=== PATIENT | male | born 1990 | race Caucasian/White ===

== ENCOUNTER 2020-07-10 18:42 | Emergency (ER) | payer SELFPAY ==
[~2020-07-10] VITALS: Ht 185.4 cm; Wt 87.3 kg
[2020-07-10] MEDS ORDERED: DOXY100C2 PO (18:52)
[2020-07-10] MEDS ORDERED: NIZO2SH TP (18:52)
[2020-07-10] MEDS ORDERED: PANT40TA54 PO (18:52)
[2020-07-10] MEDS ORDERED: ACETAMINOPHEN 500 MG TABLET PO ONE (19:30)
[2020-07-10 20:43] VITALS: BP 111/63
== END 2020-07-10 20:30 | disposition home or self-care (01) ==
LOC: EMS 18:42
DX: R10.9 Unspecified abdominal pain (principal)
CPT/HCPCS: 99282; Z7502; Z7610

== ENCOUNTER 2021-07-27 10:12 | Inpatient (IN) | payer MEDICAID, OTHER ==
[~2021-07-27] VITALS: Ht 175.3 cm; Wt 86.0 kg
[~2021-07-27 10:12] MED LIST: DOXY100C5 PO; NIZO2SH TP; PANT40TA54 PO
[2021-07-27 12:00] LABS: BASOPHILS % (AUTO) 0.3 % (0.0-2.0); EOSINOPHILS % (AUTO) 0.3 % (1.0-6.0); HEMATOCRIT 44.7 % (41-53); HEMOGLOBIN 15.3 g/dL (13.5-17.5); LYMPHOCYTES # (AUTO) 1.3 K/uL (1.0-4.8); LYMPHOCYTES % (AUTO) 13.2 % (22.0-44.0); MEAN CORPUSCULAR HEMOGLOBIN 30.3 pg (26.0-34.0); MEAN CORPUSCULAR HGB CONC 34.3 G/dL (31.0-37.0); MEAN CORPUSCULAR VOLUME 88 fL (80-100); MONOCYTES # (AUTO) 0.5 K/uL (0.1-1.0); MONOCYTES % (AUTO) 4.7 % (2.0-9.0); NEUTROPHILS % (AUTO) 81.5 % (40.0-70.0); PLATELET COUNT (AUTO) 179 K/uL (150-450); RED BLOOD CELL COUNT(AUTO) 5.06 MIL/uL (4.50-5.90); RED CELL DISTRIBUTION WIDTH 14.5 % (11.5-14.5)
[2021-07-27 12:14] LABS: ANION GAP 5 mmol/L (8-16); CALCIUM, TOTAL 8.9 mg/dL (8.8-10.5); CARBON DIOXIDE 30 mmol/L (22-29); CHLORIDE 106 mmol/L (98-107); CREATININE 0.87 mg/dL (0.60-1.30); GLOMERULAR FILTR. RATE CALC > 60 mL/min (>60); GLUCOSE,RANDOM 100 mg/dL (70-110); POTASSIUM 4.3 mmol/L (3.5-5.1); SODIUM SERUM 141 mmol/L (136-145); UREA NITROGEN, BLOOD 9 mg/dL (7-18)
[2021-07-27 12:17] LABS: AMPHET/METH SCREEN,URINE NEGATIVE (NEGATIVE); BARBITURATE SCREEN, URINE NEGATIVE (NEGATIVE); BENZODIAZEPINES SCREEN,URINE NEGATIVE (NEGATIVE); CANNABINOID SCREEN,URINE NEGATIVE (NEGATIVE); COCAINE SCREEN,URINE NEGATIVE (NEGATIVE); METHADONE SCREEN, URINE NEGATIVE (NEGATIVE); OPIATE SCREEN,URINE NEGATIVE (NEGATIVE); PHENCYCLIDINE SCREEN,URINE NEGATIVE (NEGATIVE)
[2021-07-27 12:18] LABS: ALANINE AMINOTRANSFERASE 47 U/L (12-78); ALBUMIN 4.1 g/dL (3.4-5.0); ALKALINE PHOSPHATASE 75 U/L (46-116); ASPARTATE AMINOTRANSFERASE 21 U/L (15-37); BILIRUBIN,TOTAL 0.2 mg/dL (0.1-1.0); TOTAL PROTEIN, SERUM 7.6 g/dL (6.4-8.2)
[2021-07-27] MEDS ORDERED: HALOPERIDOL LACTATE 5 MG/ML VIAL IM ONE (12:45)
[2021-07-27] MEDS ORDERED: DiphenhydrAMINE HCL 50 MG/ML VIAL IM ONE (12:45)
[2021-07-27] MEDS ORDERED: LORazepam 2 MG/ML VIAL IM ONE (12:45)
[2021-07-27 13:39] LABS: COVID AG,FIA SOURCE NASOPHARYNGEAL
[2021-07-27 19:50] VITALS: BP 140/84
[2021-07-27] MEDS: LORazepam 1 MG TABLET PO PRN (20:36)
[2021-07-27] MEDS: HALOPERIDOL 5 MG TABLET PO PRN (20:36)
[2021-07-28 08:12] VITALS: BP 100/57
[2021-07-28] MEDS: RisperiDONE 1 MG TABLET PO SCH ×2 (10:49→17:01)
[2021-07-28] MEDS: SERTRALINE HCL 50 MG TABLET PO SCH (10:49)
[2021-07-28] MEDS ORDERED: IBUPROFEN 400 MG TABLET PO PRN (14:30)
[2021-07-28] MEDS ORDERED: ACETAMINOPHEN 325 MG TABLET PO PRN (14:30)
[2021-07-28] MEDS ORDERED: GuaiFENesin/D-METHORPHAN [SUGAR-FREE] 200-20MG/10 ML SYRUP UDCUP PO PRN (14:30)
[2021-07-28] MEDS ORDERED: MAGNESIUM HYDROXIDE SUSPENSION 30 ML UDCUP PO PRN (14:30)
[2021-07-28] MEDS ORDERED: DOCUSATE SODIUM 100 MG CAPSULE PO PRN (14:30)
[2021-07-28] MEDS ORDERED: PETROLATUM,WHITE 28 GM JELLY TP PRN (14:30)
[2021-07-28] MEDS ORDERED: LOPERAMIDE HCL 2 MG CAPSULE PO PRN (14:30)
[2021-07-28] MEDS ORDERED: ONDANSETRON HCL 4 MG TABLET PO PRN (14:30)
[2021-07-28] MEDS ORDERED: ALBUTEROL SULFATE HFA 90 MCG/PUFF 8 GM INHALER IH PRN (14:30)
[2021-07-28] MEDS ORDERED: CloNIDine HCL 0.1 MG TABLET PO PRN (14:30)
[2021-07-28] MEDS ORDERED: MAG HYDROX/AL HYDROX/SIMETH ES 30 ML SUSPENSION UDCUP PO PRN (14:30)
[2021-07-28] MEDS ORDERED: NICOTINE 14 MG/24 HOUR PATCH TD PRN (14:30)
[2021-07-28] MEDS: LORazepam 1 MG TABLET PO PRN (16:10)
[2021-07-28] MEDS: HALOPERIDOL 5 MG TABLET PO PRN (16:10)
[2021-07-29] MEDS: ZOLPIDEM TARTRATE 10 MG TABLET PO PRN ×2 (01:46→21:51)
[2021-07-29 01:51] VITALS: BP 145/82
[2021-07-29] MEDS: HALOPERIDOL 5 MG TABLET PO PRN ×3 (02:43→20:57)
[2021-07-29] MEDS: LORazepam 1 MG TABLET PO PRN ×3 (02:43→16:23)
[2021-07-29] MEDS ORDERED: HYDROCORTISONE 2.5% 30 GM CREAM TP PRN (07:00)
[2021-07-29] MEDS: PANTOPRAZOLE SODIUM 40 MG DR TABLET PO SCH (08:59)
[2021-07-29] MEDS: SERTRALINE HCL 50 MG TABLET PO SCH (08:59)
[2021-07-29] MEDS: RisperiDONE 1 MG TABLET PO SCH ×2 (08:59→16:23)
[2021-07-29 09:08] VITALS: BP 130/78
[2021-07-29 16:37] VITALS: BP 126/70
[2021-07-30] MEDS: LORazepam 1 MG TABLET PO PRN (01:32)
[2021-07-30 08:23] VITALS: BP 121/62
[2021-07-30] MEDS: PANTOPRAZOLE SODIUM 40 MG DR TABLET PO SCH (09:34)
[2021-07-30] MEDS: RisperiDONE 1 MG TABLET PO SCH (09:34)
[2021-07-30] MEDS: SERTRALINE HCL 50 MG TABLET PO SCH (09:34)
== END 2021-07-30 14:45 | disposition left against medical advice (07) | DRG 750 ==
LOC: EMS 10:19 → 3EC 14:38
PROVIDERS: ADMIT Psychiatry & Neurology Child & Adolescent Psychiatry; ATTEND Psychiatry & Neurology Child & Adolescent Psychiatry
DX: F20.9 Schizophrenia, unspecified (principal); F10.10 Alcohol abuse, uncomplicated; K21.9 Gastro-esophageal reflux disease without esophagitis; K59.00 Constipation, unspecified; F19.10 Other psychoactive substance abuse, uncomplicated; Z20.822 Contact with and (suspected) exposure to COVID-19; Z53.29 Procedure and treatment not carried out because of patient's decision for other reasons
CPT/HCPCS: 80053; 85025; 99285; G0480

== ENCOUNTER 2022-11-11 20:14 | Emergency (ER) | payer MEDICAID ==
[~2022-11-11] VITALS: Ht 182.9 cm; Wt 77.3 kg
[2022-11-11 20:19] VITALS: BP 126/73; PULSE 92; RESP 18; TEMP 97.8
[2022-11-11 23:00] LABS: ANION GAP 12 mmol/L (8-16); CALCIUM, TOTAL 9.2 mg/dL (8.8-10.5); CARBON DIOXIDE 31 mmol/L (22-29); CHLORIDE 101 mmol/L (98-107); CREATININE 0.83 mg/dL (0.60-1.30); GLOMERULAR FILTR. RATE CALC > 60 mL/min (>60); GLUCOSE,RANDOM 82 mg/dL (70-110); POTASSIUM 3.7 mmol/L (3.5-5.1); SODIUM SERUM 144 mmol/L (136-145)
[2022-11-11 23:03] LABS: BASOPHILS % (AUTO) 0.6 % (0.0-2.0); EOSINOPHILS % (AUTO) 1.5 % (1.0-6.0); HEMATOCRIT 51.3 % (41-53); LYMPHOCYTES # (AUTO) 1.8 K/uL (1.0-4.8); LYMPHOCYTES % (AUTO) 24.7 % (22.0-44.0); MEAN CORPUSCULAR HEMOGLOBIN 31.1 pg (26.0-34.0); MEAN CORPUSCULAR HGB CONC 33.1 G/dL (31.0-37.0); MEAN CORPUSCULAR VOLUME 94 fL (80-100); MONOCYTES # (AUTO) 0.4 K/uL (0.1-1.0); MONOCYTES % (AUTO) 5.4 % (2.0-9.0); NEUTROPHILS % (AUTO) 67.8 % (40.0-70.0); PLATELET COUNT (AUTO) 171 K/uL (150-450); RED BLOOD CELL COUNT(AUTO) 5.47 MIL/uL (4.50-5.90); RED CELL DISTRIBUTION WIDTH 13.6 % (11.5-14.5)
[2022-11-11 23:07] LABS: ALANINE AMINOTRANSFERASE 47 U/L (12-78); ALBUMIN 4.2 g/dL (3.4-5.0); ALKALINE PHOSPHATASE 78 U/L (46-116); ASPARTATE AMINOTRANSFERASE 25 U/L (15-37); BILIRUBIN,TOTAL 0.5 mg/dL (0.1-1.0); TOTAL PROTEIN, SERUM 7.8 g/dL (6.4-8.2)
== END 2022-11-12 00:30 | disposition home or self-care (01) ==
LOC: MERGE 20:17 → EMS 20:17
DX: F20.9 Schizophrenia, unspecified (principal); F12.90 Cannabis use, unspecified, uncomplicated; F15.90 Other stimulant use, unspecified, uncomplicated; F14.90 Cocaine use, unspecified, uncomplicated
CPT/HCPCS: 99284; 80053; 85025; G0480

== ENCOUNTER 2024-01-09 01:10 | Emergency (ER) | payer SELFPAY ==
[~2024-01-09] VITALS: Ht 177.8 cm; Wt 81.8 kg
[2024-01-09 03:52] LABS: ANION GAP 11 mmol/L (8-16); CARBON DIOXIDE 29 mmol/L (22-29); CHLORIDE 105 mmol/L (98-107); CREATININE 0.84 mg/dL (0.60-1.30); GLOMERULAR FILTR. RATE CALC > 60 mL/min (>60); GLUCOSE,RANDOM 97 mg/dL (70-110); POTASSIUM 3.6 mmol/L (3.5-5.1); SODIUM SERUM 145 mmol/L (136-145); UREA NITROGEN, BLOOD 5 mg/dL (7-18)
[2024-01-09 04:06] LABS: ALCOHOL, BLOOD (SERUM) < 3 mg/dL (0-10)
[2024-01-09 04:16] LABS: BASOPHILS % (AUTO) 0.4 % (0.0-2.0); EOSINOPHILS % (AUTO) 0.4 % (1.0-6.0); HEMATOCRIT 50.4 % (41-53); HEMOGLOBIN 16.6 g/dL (13.5-17.5); LYMPHOCYTES # (AUTO) 2.2 K/uL (1.0-4.8); LYMPHOCYTES % (AUTO) 17.2 % (22.0-44.0); MEAN CORPUSCULAR HEMOGLOBIN 31.5 pg (26.0-34.0); MEAN CORPUSCULAR HGB CONC 32.9 G/dL (31.0-37.0); MEAN CORPUSCULAR VOLUME 96 fL (80-100); MONOCYTES # (AUTO) 0.6 K/uL (0.1-1.0); MONOCYTES % (AUTO) 4.3 % (2.0-9.0); NEUTROPHILS # (AUTO) 10.1 K/uL (1.8-7.7); NEUTROPHILS % (AUTO) 77.7 % (40.0-70.0); PLATELET COUNT (AUTO) 174 K/uL (150-450); RED BLOOD CELL COUNT(AUTO) 5.26 MIL/uL (4.50-5.90); RED CELL DISTRIBUTION WIDTH 13.3 % (11.5-14.5); WHITE BLOOD COUNT (AUTO) 12.9 K/uL (4.5-11.0)
[2024-01-09 06:28] LABS: COVID AG,FIA SOURCE NASAL SWAB
[2024-01-09 07:29] LABS: SARS-COV2 (COVID) ANTIGEN,FIA Negative (Negative)
[2024-01-09 08:31] VITALS: BP 125/65; PULSE 63; RESP 18; TEMP 97.1; O2SAT 99
== END 2024-01-09 11:12 | disposition home or self-care (01) ==
LOC: EMS 01:11
DX: F20.9 Schizophrenia, unspecified (principal); F12.90 Cannabis use, unspecified, uncomplicated; F15.90 Other stimulant use, unspecified, uncomplicated; F14.90 Cocaine use, unspecified, uncomplicated; Z91.199 Patient's noncompliance with other medical treatment and regimen due to unspecified reason; Z20.822 Contact with and (suspected) exposure to COVID-19
CPT/HCPCS: 80048; 85025; 36415; 99283; 87426; G0480

== ENCOUNTER 2024-11-22 16:44 | Inpatient (IN) | payer MEDICAID ==
[~2024-11-22] VITALS: Ht 175.3 cm; Wt 88.9 kg
[2024-11-22 19:03] LABS: PLATELET COUNT (AUTO) 181 K/uL (150-450); RED BLOOD CELL COUNT(AUTO) 5.30 MIL/uL (4.50-5.90); RED CELL DISTRIBUTION WIDTH 12.8 % (11.5-14.5); WHITE BLOOD COUNT (AUTO) 9.3 K/uL (4.5-11.0)
[2024-11-22 19:12] LABS: CALCIUM, TOTAL 9.1 mg/dL (8.8-10.5); CREATININE 1.02 mg/dL (0.60-1.30); GLOMERULAR FILTR. RATE CALC > 60 mL/min (>60); GLUCOSE,RANDOM 103 mg/dL (70-110); SODIUM SERUM 141 mmol/L (136-145); UREA NITROGEN, BLOOD 13 mg/dL (7-18)
[2024-11-22] MEDS: GuaiFENesin/D-METHORPHAN [SUGAR-FREE] 200-20MG/10 ML SYRUP UDCUP PO ONE (19:20)
[2024-11-22 19:57] LABS: COVID AG,FIA SOURCE NASAL SWAB
[2024-11-22 20:45] LABS: SARS-COV2 (COVID) ANTIGEN,FIA Negative (Negative)
[2024-11-23 03:05] VITALS: BP 119/92; PULSE 80; RESP 17; TEMP 97.4
[2024-11-23 08:06] VITALS: BP 105/62; PULSE 63; RESP 15; TEMP 97.6; O2SAT 98
[2024-11-23 08:07] VITALS: BP 105/62; PULSE 63; RESP 15; TEMP 97.6; O2SAT 98
[2024-11-23] MEDS ORDERED: PETROLATUM,WHITE 28 GM JELLY TP PRN (08:45)
[2024-11-23] MEDS ORDERED: MAG HYDROX/ALUMINUM HYD/SIMETH ES 30 ML SUSPENSION UDCUP PO PRN (08:45)
[2024-11-23] MEDS ORDERED: OMEPRAZOLE 20 MG CAPSULE PO PRN (08:45)
[2024-11-23] MEDS ORDERED: ALBUTEROL SULFATE HFA 90 MCG/PUFF 8 GM INHALER IH PRN (08:45)
[2024-11-23] MEDS ORDERED: ONDANSETRON 4 MG TABLET PO PRN (08:45)
[2024-11-23] MEDS ORDERED: IBUPROFEN 600 MG TABLET PO PRN (08:45)
[2024-11-23] MEDS ORDERED: LOPERAMIDE HCL 2 MG CAPSULE PO PRN (08:45)
[2024-11-23] MEDS ORDERED: ACETAMINOPHEN 325 MG TABLET PO PRN (08:45)
[2024-11-23] MEDS ORDERED: MAGNESIUM HYDROXIDE SUSPENSION 30 ML UDCUP PO PRN (08:45)
[2024-11-23] MEDS ORDERED: NICOTINE POLACRILEX 4 MG LOZENGE PO PRN (08:45)
[2024-11-23] MEDS ORDERED: BENZOCAINE/MENTHOL [CEPACOL] LOZENGE PO PRN (08:45)
[2024-11-23] MEDS ORDERED: BACITRACIN 28 GM OINTMENT TP PRN (08:45)
[2024-11-23] MEDS ORDERED: DOCUSATE SODIUM 100 MG CAPSULE PO PRN (08:45)
[2024-11-23 20:09] VITALS: BP 117/66; PULSE 93; RESP 16; TEMP 98.1; O2SAT 99
[2024-11-23] MEDS: ZOLPIDEM TARTRATE 10 MG TABLET PO PRN (21:10)
[2024-11-23 21:49] VITALS: BP 117/66; PULSE 93; RESP 16; TEMP 98.1; O2SAT 99
[2024-11-24 08:31] VITALS: BP 113/69; PULSE 90; RESP 17; TEMP 97.6; O2SAT 97
[2024-11-24 09:11] LABS: APPEARANCE,URINE CLEAR (CLEAR); GLUCOSE, URINE (UA) NEGATIVE (NEGATIVE); LEUKOCYTE ESTERASE ,URINE TRACE (NEGATIVE); NITRATE,URINE NEGATIVE (NEGATIVE); OCCULT BLOOD,URINE NEGATIVE (NEGATIVE); SPECIFIC GRAVITIY, URINE 1.021 (1.003-1.030)
[2024-11-24 09:21] LABS: ALCOHOL, URINE DRUG SCREEN NEGATIVE (NEGATIVE); AMPHET/METH SCREEN,URINE NEGATIVE (NEGATIVE); BARBITURATE SCREEN, URINE NEGATIVE (NEGATIVE); CANNABINOID SCREEN,URINE NEGATIVE (NEGATIVE); COCAINE SCREEN,URINE NEGATIVE (NEGATIVE); METHADONE SCREEN, URINE NEGATIVE (NEGATIVE)
[2024-11-24 09:22] LABS: PH,URINE DRUG SCREEN 6.5 (5.0-8.0)
[2024-11-24 09:24] LABS: SQUAMOUS EPITHELIAL CELL,UR Few /LPF (None Seen)
[2024-11-24 17:15] LABS: GLUCOMETER DEV NAME(LOC) BV3S.2; GLUCOSE,POINT OF CARE 136 MG/DL (70-110)
[2024-11-24 20:09] VITALS: BP 103/75; PULSE 113; RESP 18; TEMP 97.7; O2SAT 95
[2024-11-25 09:00] VITALS: BP 102/67; PULSE 86; RESP 17; TEMP 97.5; O2SAT 99
[2024-11-25] MEDS: NITROFURANTOIN MONOHYD/M-CRYST 100 MG CAPSULE [MACROBID] PO SCH (17:24)
[2024-11-25 20:14] VITALS: BP 115/56; PULSE 100; RESP 18; TEMP 97.8; O2SAT 98
[2024-11-26 08:23] VITALS: BP 100/62; PULSE 69; RESP 17; TEMP 97.7; O2SAT 96
[2024-11-26 20:47] VITALS: BP 111/67; PULSE 89; RESP 17; TEMP 97.2; O2SAT 96
[2024-11-27 08:24] VITALS: BP 101/61; PULSE 72; RESP 17; TEMP 97.2; O2SAT 96
[2024-11-28 08:43] VITALS: BP 104/62; PULSE 71; RESP 15; TEMP 97.3; O2SAT 96
[2024-11-28] MEDS ORDERED: RISP3TAB35 PO (11:35)
[2024-11-28 20:21] VITALS: BP 109/57; PULSE 74; RESP 18; TEMP 97.4
[2024-11-29 08:51] VITALS: RESP 18
== END 2024-11-29 17:00 | disposition home or self-care (01) | DRG 750 ==
LOC: EMS 16:44 → B3A 11-23 00:52 → UNDOADMIN 11-23 00:52 → UNDODISIN 11-28 18:43
PROVIDERS: ADMIT Psychiatry & Neurology Psychiatry; ATTEND Psychiatry & Neurology Psychiatry
DX: F20.9 Schizophrenia, unspecified (principal); F10.10 Alcohol abuse, uncomplicated; F41.9 Anxiety disorder, unspecified; Z20.822 Contact with and (suspected) exposure to COVID-19; G47.00 Insomnia, unspecified; Y90.9 Presence of alcohol in blood, level not specified; Z87.891 Personal history of nicotine dependence
CPT/HCPCS: 80048; 80307; 81001; 82962; 85025; 87086; 99285; G0480